=== PATIENT | male | born 1960 | race Caucasian/White ===

== ENCOUNTER 2017-07-21 13:34 | Day surgery (SDC) | payer OTHER, BC ==
[2017-07-21] MEDS ORDERED: LIDOCAINE 2% (SDV) 5 ML INJ (14:50)
[2017-07-21] MEDS ORDERED: PROPOFOL 60 ML (14:50)
== END 2017-07-21 18:23 | disposition home or self-care (01) ==
LOC: GIL 13:34
DX: Z12.11 Encounter for screening for malignant neoplasm of colon (principal); B96.81 Helicobacter pylori [H. pylori] as the cause of diseases classified elsewhere; K21.9 Gastro-esophageal reflux disease without esophagitis; K29.60 Other gastritis without bleeding; K64.8 Other hemorrhoids; D12.5 Benign neoplasm of sigmoid colon; I10 Essential (primary) hypertension; E66.9 Obesity, unspecified; Z68.34 Body mass index [BMI] 34.0-34.9, adult
CPT/HCPCS: 43239; 87081; 88309